=== PATIENT | female | born 1980 | race Caucasian/White ===

== ENCOUNTER 2017-05-16 05:38 | Day surgery (SDC) | payer BC ==
[~2017-05-16] VITALS: Ht 170.2 cm; Wt 69.8 kg
[~2017-05-16 05:38] MED LIST: FISH OIL 1,0001 EAC7 PO; MULTIPLE VITAM1 EAC4 PO; Motrin PO; OMEGA-3 FLAXS1000 MG PO; Percocet 5/325,Endoc PO; VITAMIN E400 UNIT PO
[2017-05-16 05:56] VITALS: BP 121/79
[2017-05-16 11:18] VITALS: BP 116/73
[2017-05-16 15:45] VITALS: BP 94/58
[2017-05-16 16:11] LABS: HEMATOCRIT 34.9 % (36.0-46.0); MCH 31.3 PG (29.0-34.0); MCHC 34.1 G/DL (30.0-36.0); MCV 91.8 FL (83-99); MEAN PLAT.VOLUME 10.5 uM^3 (9.5-12.4); PLATELET COUNT 200 K/uL (156-360); RBC DIS.WIDTH-SD 40.2 % (39-53); WHITE BLOOD COUNT 11.7 K/uL (4.1-10.2)
[2017-05-16 16:34] LABS: ANION GAP 7 MEQ/L (2-14); CHLORIDE 104 MEQ/L (99-109); GFR ESTIMATE (CALCULATED) > 59 mL/min/; GLUCOSE 212 mg/dL (70-99); POTASSIUM 4.5 MEQ/L (3.7-5.4); SAMPLE HEMOLYSIS CHECK 0; SAMPLE ICTERIC CHECK 0; SAMPLE LIPEMIA CHECK 0; SODIUM 135 MEQ/L (136-147); UREA NITROGEN (BUN) 9 mg/dL (9-23)
[2017-05-16 19:39] VITALS: BP 108/63
[2017-05-17 00:17] VITALS: BP 100/60
[2017-05-17 03:59] VITALS: BP 112/69
[2017-05-17 06:48] LABS: HEMATOCRIT 32.2 % (36.0-46.0); MCH 31.7 PG (29.0-34.0); MCHC 34.2 G/DL (30.0-36.0); MCV 92.8 FL (83-99); MEAN PLAT.VOLUME 10.7 uM^3 (9.5-12.4); PLATELET COUNT 182 K/uL (156-360); RBC DIS.WIDTH-CV 11.9 % (11.8-14.6); RBC DIS.WIDTH-SD 40.2 % (39-53); RED BLOOD COUNT 3.47 M/uL (3.80-5.20); WHITE BLOOD COUNT 7.9 K/uL (4.1-10.2)
[2017-05-17 06:53] LABS: ANION GAP 5 MEQ/L (2-14); CHLORIDE 106 MEQ/L (99-109); GFR ESTIMATE (CALCULATED) > 59 mL/min/; GLUCOSE 129 mg/dL (70-99); POTASSIUM 3.6 MEQ/L (3.7-5.4); SAMPLE HEMOLYSIS CHECK 0; SAMPLE ICTERIC CHECK 0; SAMPLE LIPEMIA CHECK 0; SODIUM 138 MEQ/L (136-147); UREA NITROGEN (BUN) 5 mg/dL (9-23)
[2017-05-17 08:41] VITALS: BP 115/73
[2017-05-17] MEDS ORDERED: TRAMADOL HCL50 MG PO (09:23)
== END 2017-05-17 10:24 | disposition home or self-care (01) ==
LOC: SDC 05:38 → 2SOUTH 09:00 → 2EAST 10:36 → SDC 12:28 → 2EAST 05-17 10:24
PROVIDERS: Obstetrics & Gynecology Gynecologic Oncology
PROC: 0UT97ZZ Resection of Uterus, Via Natural or Artificial Opening (ICD-10-PCS; principal; 2017-05-16)
PROC: 0UTC7ZZ Resection of Cervix, Via Natural or Artificial Opening (ICD-10-PCS; principal; 2017-05-16)
DX: D06.9 Carcinoma in situ of cervix, unspecified (principal); R00.1 Bradycardia, unspecified; Z98.1 Arthrodesis status; Z80.3 Family history of malignant neoplasm of breast; Z82.49 Family history of ischemic heart disease and other diseases of the circulatory system; Z83.3 Family history of diabetes mellitus
CPT/HCPCS: 80048; 85027; 88307; G0378; J0131; J0171; J0690; J1100; J1170; J1885; J2250; J2405; J3010